=== PATIENT | female | born 1995 | race African-American/Black ===

== ENCOUNTER 2017-06-09 09:08 | Emergency (ER) | payer OTHER ==
[~2017-06-09] VITALS: Ht 154.9 cm; Wt 52.2 kg
[2017-06-09 09:35] LABS: AMPHETAMINE QUAL UR NONE DETECTED (NEG <=1000)
[2017-06-09 10:40] LABS: BASOPHIL % 0.5 % (0-2); PLATELET COUNT 293 x10^3mcL (130-400); RED CELL DISTRIBUTION WIDTH 12.3 % (11.5-14.5)
[2017-06-09 10:46] LABS: CALCIUM 9.1 mg/dL (8.5-10.1); CARBON DIOXIDE 28.8 mmol/L (21-32); CHLORIDE SERUM 104 mmol/L (98-107); CREATININE SERUM 0.5 mg/dL (0.6-1.0); GFR1 > 60 mL/min; GLUCOSE SERUM 91 mg/dL (74-106); SODIUM SERUM 140 mmol/L (136-145)
[2017-06-09 10:51] LABS: ALBUMIN 3.9 g/dL (3.4-5.0); ALKALINE PHOSPHATASE 67 U/L (46-116); ALT/SGPT 15 U/L (14-59); AST/SGOT 14 U/L (15-37); BILIRUBIN TOTAL 0.3 mg/dL (0.20-1.00); TOTAL PROTEIN, SERUM 8.1 g/dL (6.4-8.2)
[2017-06-09 11:40] VITALS: BP 101/65
== END 2017-06-09 11:40 | disposition home or self-care (01) ==
LOC: ED 09:08
PROVIDERS: Emergency Medicine
DX: R55 Syncope and collapse (principal); R04.0 Epistaxis; M54.2 Cervicalgia
CPT/HCPCS: 36415; J7030